=== PATIENT | male | born 1955 | race Caucasian/White ===

== ENCOUNTER 2023-07-13 07:48 | Emergency (ER) | payer OTHER ==
[~2023-07-13] VITALS: Ht 160 cm; Wt 63.5 kg
[2023-07-13 07:50] VITALS: BP 139/77; PULSE 81; RESP 16; TEMP 98.5; O2SAT 98
[2023-07-13] MEDS ORDERED: CYCL-711 PO (08:06)
[2023-07-13] MEDS ORDERED: NAPR-54 PO (08:06)
[2023-07-13] MEDS: KETOROLAC 30 MG/ML VIAL IM ONE (08:10)
[2023-07-13 10:25] VITALS: BP 139/77; PULSE 81; RESP 16; TEMP 98.5; O2SAT 98
== END 2023-07-13 10:27 | disposition home or self-care (01) ==
LOC: MED 07:48
DX: S16.1XXA Strain of muscle, fascia and tendon at neck level, initial encounter (principal); Z79.899 Other long term (current) drug therapy; X58.XXXA Exposure to other specified factors, initial encounter; Y93.89 Activity, other specified; Y92.89 Other specified places as the place of occurrence of the external cause; Y99.8 Other external cause status
CPT/HCPCS: 72040; 96372; 99283; J1885